=== PATIENT | male | born 1975 | race Caucasian/White ===

== ENCOUNTER 2017-04-19 14:11 | Emergency (ER) | payer OTHER ==
--- NOTE | 2017-04-19 15:47 | RAD ---
INDICATION: Calcaneal injury COMPARISON: None TECHNIQUE: AP, lateral, and oblique views were obtained. FINDINGS: There are calcination is present Achilles tendon insertion consistent with tendinopathy and perhaps a detached osteophyte from the calcaneus. No other focal bony findings are seen. Soft tissues are normal IMPRESSION: ACHILLES CALCANEAL SPUR WITH POSSIBLE DETACHMENT. ACHILLES TENDINOPATHY.
[2017-04-19 16:39] VITALS: BP 126/75
--- NOTE | 2017-04-19 17:01 | UC ---
Lower Extremity/Ankle HPI - HPI Summary HPI Summary: ONE WEEK OF RIGHT HEEL PAIN. HISTORY OF GOUT. NO KNOWN TRAUMA OR SINGLE INCIDENT WHEN IT BEGAN, BUT PAIN IS WORSE WITH AMBULATION ESPECIALLY WHEN LIFTING FOOT IN STRIDE. - History of Current Complaint Chief Complaint: UCLowerExtremity Stated Complaint: HEEL PAIN Time Seen by Provider: 04/19/17 15:12 Hx Obtained From: Patient Onset/Duration: Gradual Onset, Lasting Weeks, Worse Since - DAILY Severity Initially: Mild Severity Currently: Moderate Pain Intensity: 2 Pain Scale Used: 0-10 Numeric Aggravating Factor(s): Standing, Ambulation Alleviating Factor(s): Rest, Elevation Able to Bear Weight: Yes - Risk Factors Gout Risk Factors: Negative DVT Risk Factors: Negative Septic Arthritis Risk Factor: Negative - Allergies/Home Medications Allergies/Adverse Reactions: Allergies Allergy/AdvReac Type Severity Reaction Status Date / Time Shellfish Allergy Allergy Swelling Verified 04/01/16 15:10 Home Medications: Home Medications Losartan TAB* [Cozaar TAB*] 25 mg PO DAILY 04/19/17 [History Confirmed 04/19/17] Metoprolol Succinate [Toprol Xl] 25 mg PO 04/19/17 [History] PMH/Surg Hx/FS Hx/Imm Hx Previously Healthy: Yes - Surgical History Surgical History: Yes Surgery Procedure, Year, and Place: Appendectomy - Family History Known Family History: Positive: Diabetes - diffuse Negative: Hypertension - Social History Occupation: Employed Full-time Lives: With Family Alcohol Use: Weekly Substance Use Type: None Smoking Status (MU): Former Smoker Amount Used/How Often: 1 pack per day Length of Time of Smoking/Using Tobacco: 2008 Have You Smoked in the Last Year: No Review of Systems Constitutional: Negative Skin: Negative Eyes: Negative ENT: Negative Respiratory: Negative Cardiovascular: Negative Gastrointestinal: Negative Genitourinary: Negative Motor: Negative Neurovascular: Negative Musculoskeletal: Arthralgia, Myalgia Neurological: Negative Psychological: Negative All Other Systems Reviewed And Are Negative: Yes Physical Exam Triage Information Reviewed: Yes Appearance: Well-Appearing, No Pain Distress, Well-Nourished Vital Signs: Initial Vital Signs Temp 97.9 F 04/19/17 14:27 Pulse 85 04/19/17 14:27 Resp 18 04/19/17 14:27 BP 153/91 04/19/17 14:27 Pulse Ox 98 04/19/17 14:27 Vital Signs Reviewed: Yes Eye Exam: Normal ENT Exam: Normal Dental Exam: Normal Neck exam: Normal Neck: Positive: Supple, Nontender Respiratory Exam: Normal Respiratory: Positive: Chest non-tender, Lungs clear, Normal breath sounds, No respiratory distress, No accessory muscle use Cardiovascular Exam: Normal Cardiovascular: Positive: RRR, No Murmur, Pulses Normal, Brisk Capillary Refill Abdominal Exam: Normal Musculoskeletal: Positive: Strength Intact, ROM Intact, No Edema, Other: - TENDERNESS TO PALPATION OF RIGHT HEEL Neurological Exam: Normal Psychological Exam: Normal Skin Exam: Normal Lower Extremity Course/Dx - Differential Dx/Diagnosis Differential Diagnosis/HQI/PQRI: Fracture (Closed), Sprain, Strain Provider Diagnoses: RIGHT ACHILLES CALCANEAL SPUR WITH POSSIBLE DETACHMENT. RIGHT ACHILLES TENDINOPATHY Discharge - Discharge Plan Condition: Stable Disposition: HOME Patient Education Materials: Achilles Tendinitis (ED), Heel Spur (ED) Forms: *Work Release Referrals: Tyler Mota MD [Medical Doctor] - Freddy Rawls MD [Primary Care Provider] -
== END 2017-04-19 16:36 | disposition home or self-care (01) ==
LOC: UCEAST 14:11
DX: M77.31 Calcaneal spur, right foot (principal); M76.61 Achilles tendinitis, right leg; Z87.891 Personal history of nicotine dependence
CPT/HCPCS: 99213; G0463

== ENCOUNTER 2017-10-19 12:25 | Emergency (ER) | payer OTHER ==
[2017-10-19 12:40] VITALS: BP 145/95
--- NOTE | 2017-10-19 13:17 | UC ---
Respiratory Complaint HPI - HPI Summary HPI Summary: Pt presents with chest congestion, dry cough, and voice hoarseness. His cough began about 1 week ago and he has been taking mucinex with little relief. About 3 days ago his voice became hoarse. He denies fever, chills, sinus symptoms, SOB , chest pain, abdominal pain, n/v/d/c. - History of Current Complaint Chief Complaint: UCGeneralIllness Stated Complaint: CHEST CONGESTION Time Seen by Provider: 10/19/17 13:17 Hx Obtained From: Patient Onset/Duration: Gradual Onset Pain Intensity: 0 Character: Cough: Nonproductive - Allergies/Home Medications Allergies/Adverse Reactions: Allergies Allergy/AdvReac Type Severity Reaction Status Date / Time shellfish derived Allergy Swelling Verified 10/19/17 12:33 PMH/Surg Hx/FS Hx/Imm Hx Previously Healthy: Yes Cardiovascular History: Hypertension - Surgical History Surgical History: Yes Surgery Procedure, Year, and Place: Appendectomy - Family History Known Family History: Positive: Diabetes - diffuse Negative: Hypertension - Social History Occupation: Employed Full-time Lives: With Family Alcohol Use: Occasionally Substance Use Type: None Smoking Status (MU): Former Smoker Amount Used/How Often: 1 pack per day Length of Time of Smoking/Using Tobacco: 2008 Have You Smoked in the Last Year: No Review of Systems Constitutional: Negative Skin: Negative Eyes: Negative ENT: Other - Hoarseness Respiratory: Cough Cardiovascular: Negative Gastrointestinal: Negative Neurological: Negative Psychological: Negative All Other Systems Reviewed And Are Negative: Yes Physical Exam Triage Information Reviewed: Yes Appearance: Well-Appearing, No Pain Distress, Well-Nourished Vital Signs: Initial Vital Signs Temp 98.8 F 10/19/17 12:34 Pulse 75 10/19/17 12:34 Resp 16 10/19/17 12:34 BP 145/95 10/19/17 12:34 Pulse Ox 97 10/19/17 12:34 Vital Signs Reviewed: Yes Eyes: Positive: Conjunctiva Clear. Negative: Conjunctiva Inflamed, Discharge ENT: Positive: Hearing grossly normal, Pharynx normal, TMs normal, Hoarse voice , Uvula midline. Negative: Pharyngeal erythema, Nasal congestion, Nasal drainage, TM bulging, TM dull, TM red, Tonsillar swelling, Tonsillar exudate, Sinus tenderness Neck: Positive: Supple, Nontender, No Lymphadenopathy Respiratory: Positive: Chest non-tender, Lungs clear, No respiratory distress, No accessory muscle use, Wheezing - Mild throughout. Negative: Crackles Cardiovascular: Positive: RRR, No Murmur, Pulses Normal Neurological: Positive: Alert Psychological: Positive: Age Appropriate Behavior Skin: Negative: rashes UC Diagnostic Evaluation - Laboratory O2 Sat by Pulse Oximetry: 97 Respiratory Course/Dx - Course Course Of Treatment: CXR: IMPRESSION: NO ACTIVE CARDIOPULMONARY DISEASE. Suspect bronchitis, but given length of symptoms will cover him with an anbx in addition to tessalon and albuterol. - Differential Dx/Diagnosis Provider Diagnoses: Bronchitis Discharge - Discharge Plan Condition: Stable Disposition: HOME Prescriptions: Albuterol HFA INHALER* [Ventolin HFA Inhaler*] 1 - 2 puff INH Q6H PRN #1 mdi PRN Reason: Cough Azithromycin TAB* [Zithromax TAB (Z-LOU) 250 mg #6 tabs] 2 tab PO .TODAY, THEN 1 DAILY #1 lou Benzonatate CAP* [Tessalon 100 MG CAP*] 100 mg PO TID PRN #21 cap PRN Reason: Cough Patient Education Materials: Laryngitis (ED), Acute Bronchitis (ED) Referrals: Freddy Rawls MD [Primary Care Provider] - Additional Instructions: If you develop a fever, shortness of breath, chest pain, new or worsening symptoms - please call your PCP or go to the ED. Your blood pressure was high at todays visit. Please see your primary provider within 4 weeks for recheck and re-evaluation.
--- NOTE | 2017-10-19 13:46 | RAD ---
HISTORY: Cough COMPARISONS: None VIEWS: 4: Frontal dual-energy and lateral views of the chest. FINDINGS: CARDIOMEDIASTINAL SILHOUETTE: The cardiomediastinal silhouette is normal. DARYA: The darya are normal. PLEURA: The costophrenic angles are sharp. No pleural abnormalities are noted. LUNG PARENCHYMA: The lungs are clear. ABDOMEN: The upper abdomen is clear. There is no subphrenic gas. BONES AND SOFT TISSUES: Mild degenerative changes are noted along the spine. OTHER: None. IMPRESSION: NO ACTIVE CARDIOPULMONARY DISEASE.
== END 2017-10-19 14:09 | disposition home or self-care (01) ==
LOC: UCEAST 12:25
DX: J40 Bronchitis, not specified as acute or chronic (principal); I10 Essential (primary) hypertension; Z87.891 Personal history of nicotine dependence
CPT/HCPCS: 71046; 87502; 99212; G0463

== ENCOUNTER 2018-09-09 15:57 | Emergency (ER) | payer OTHER ==
[2018-09-09 16:30] VITALS: BP 160/101
[2018-09-09] MEDS ORDERED: Ketorolac INJ* 30 MG/ML 1 ML VIAL IM ONE (16:46)
--- NOTE | 2018-09-09 16:54 | UC ---
Abdominal Pain Male HPI - HPI Summary HPI Summary: Patient is a 42-year-old male with the acute onset of epigastric pain that started at 5 PM yesterday. The pain is been constant. The pain varies between a 5 and a 7. There is no change in the intensity of the pain with position or food. He has no nausea vomiting or diarrhea. He reports no changes in bowel habits. Today his appetite is less. He has had his appendix removed . he denies any URI symptoms or UTI symptoms. He has been taking Gas-X as well as omeprazole. He has not noted any change in his symptoms. - History of Current Complaint Chief Complaint: UCGeneralIllness Stated Complaint: ABDOMINAL PAIN Time Seen by Provider: 09/09/18 16:35 Hx Obtained From: Patient Onset/Duration: Sudden Onset, Lasting Hours Timing: Constant Severity Initially: Moderate Severity Currently: Moderate Pain Intensity: 6 Pain Scale Used: 0-10 Numeric Location: Epigastric Radiates: No Character: Aching, Dull Aggravating Factor(s): Nothing Alleviating Factor(s): Nothing Associated Signs And Symptoms: Positive: Back Pain - slight, Decreased Appetite. Negative: Diaphoresis, Fever, Cough, Chest Pain, Dizzy, Constipation , Blood in Stool, Urinary Symptoms, Nausea, Vomiting, Diarrhea, Penile Discharge - Allergies/Home Medications Allergies/Adverse Reactions: Allergies Allergy/AdvReac Type Severity Reaction Status Date / Time shellfish derived Allergy Swelling Verified 09/09/18 16:30 Home Medications: Home Medications Acetaminophen [Tylenol] 1,000 mg PO ONCE PRN 09/09/18 [History Confirmed ] Simethicone [Gas-X] 09/09/18 [History] PMH/Surg Hx/FS Hx/Imm Hx Previously Healthy: Yes Cardiovascular History: Hypertension Respiratory History: Asthma GI/ History: Gastroesophageal Reflux - Surgical History Surgical History: Yes Surgery Procedure, Year, and Place: Appendectomy - Family History Known Family History: Positive: Diabetes - diffuse Negative: Hypertension - Social History Alcohol Use: Rare Substance Use Type: None Smoking Status (MU): Former Smoker Amount Used/How Often: 1 pack per day Length of Time of Smoking/Using Tobacco: 2008 Have You Smoked in the Last Year: No Review of Systems All Other Systems Reviewed And Are Negative: Yes Constitutional: Positive: Negative Skin: Positive: Negative Eyes: Positive: Negative ENT: Positive: Negative Respiratory: Positive: Negative Cardiovascular: Positive: Negative Gastrointestinal: Positive: Abdominal Pain Genitourinary: Positive: Negative Motor: Positive: Negative Neurovascular: Positive: Negative Musculoskeletal: Positive: Negative Neurological: Positive: Negative Psychological: Positive: Negative Physical Exam Triage Information Reviewed: Yes Appearance: Well-Appearing, No Pain Distress, Well-Nourished Vital Signs: Initial Vital Signs Temp 98.7 F 09/09/18 16:25 Pulse 98 09/09/18 16:25 Resp 16 09/09/18 16:25 BP 160/101 09/09/18 16:25 Pulse Ox 100 09/09/18 16:25 Vital Signs Reviewed: Yes Eyes: Positive: Conjunctiva Clear ENT: Positive: Hearing grossly normal. Negative: Nasal congestion, Nasal drainage, Tonsillar swelling, Tonsillar exudate, Muffled voice, Hoarse voice, Uvula midline Neck: Positive: Supple, Nontender, No Lymphadenopathy Respiratory: Positive: Lungs clear, Normal breath sounds, No respiratory distress, No accessory muscle use Cardiovascular: Positive: RRR, No Murmur, Pulses Normal Abdomen Description: Positive: Soft. Negative: Nontender - tender RUQ, Bruit, CVA Tenderness (R), CVA Tenderness (L), Distended, Guarding, Hernia @, Hepatomegaly, McBurney's Point Tenderness, Peritoneal Signs, Pulsatile Mass, Splenomegaly Bowel Sounds: Positive: Present Musculoskeletal: Positive: ROM Intact, No Edema Neurological: Positive: Alert Psychological Exam: Normal Skin Exam: Normal Re-Evaluation - Re-Evaluation First Eval Re-Evaluation Time: 17:32 Change: Improved - pain very tolerable now, 3-4/10 Abd Pain Male Course/Dx - Differential Dx/Clinical Impression Provider Diagnosis: RUQ abdominal tenderness Discharge - Sign-Out/Discharge Documenting (check all that apply): Patient Departure All imaging exams completed and their final reports reviewed: No Studies - Discharge Plan Condition: Stable Disposition: HOME Patient Education Materials: Gallstones (ED), Low Fat Diet (ED) Referrals: Freddy Rawls MD [Primary Care Provider] - 2 Days Additional Instructions: blood work pending you may have gall stones TO ER FOR : worsening pain fever vomiting no fatty or fried foods - Billing Disposition and Condition Condition: STABLE Disposition: Home
[2018-09-10 13:53] LABS: ABS Basophils 0.1 10^3/ul (0-0.2); ABS Eosinophils 0.4 10^3/ul (0-0.6); ABS Lymphocytes 0.8 10^3/ul (1.0-4.8); ABS Neutrophils 9.1 10^3/ul (1.5-7.7); ABS Nucleated RBC 0 10^3/ul; Eosinophil % 3.7 %; Hematocrit 42 % (42-52); Hemoglobin 14.3 g/dl (14.0-18.0); Lymphocyte % 6.7 %; Mean Corpuscular HGB Conc 34 g/dl (31-36); Mean Corpuscular Hemoglobin 30 pg (27-31); Mean Corpuscular Volume 88 fL (80-94); Mean Platelet Volume 8.1 fL (7.4-10.4); Nucleated Red Blood Cells % 0; Platelet Count 256 10^3/ul (150-450); Red Blood Count 4.78 10^6/ul (4.00-5.40); Red Cell Distribution Width 13 % (10.5-15); White Blood Count 11.3 10^3/ul (3.5-10.8)
[2018-09-10 13:57] LABS: Albumin 4.6 g/dL (3.2-5.2); Calcium 9.6 mg/dL (8.6-10.3); Potassium 4.5 mmol/L (3.5-5.0); Total Bilirubin 0.6 mg/dL (0.2-1.0)
[2018-09-10 14:03] LABS: Albumin/Globulin Ratio 1.9 (1-3); BUN/Creatinine Ratio 20.4 (8-20); EGFR Non-African American 88.7 (>60); Globulin 2.4 g/dL (2-4)
--- NOTE | 2018-09-10 15:47 | UC ---
- Progress Note Progress Note: call patient to assure he is well and has follow up planned for Tuesday If symptoms are persisting follow in ED as glucose lipase wnc are elevated Re-Evaluation - Re-Evaluation First Eval Re-Evaluation Time: 17:32 Change: Improved - pain very tolerable now, 3-12/13 Course/Dx - Diagnoses Provider Diagnoses: RUQ abdominal tenderness Discharge - Sign-Out/Discharge Documenting (check all that apply): Post-Discharge Follow Up All imaging exams completed and their final reports reviewed: No Studies - Discharge Plan Condition: Stable Disposition: HOME Patient Education Materials: Gallstones (ED), Low Fat Diet (ED) Referrals: Freddy Rawls MD [Primary Care Provider] - 2 Days Additional Instructions: blood work pending you may have gall stones TO ER FOR : worsening pain fever vomiting no fatty or fried foods - Billing Disposition and Condition Condition: STABLE Disposition: Home
== END 2018-09-09 17:57 | disposition home or self-care (01) ==
LOC: UCEAST 15:57
DX: R10.811 Right upper quadrant abdominal tenderness (principal); I10 Essential (primary) hypertension; J45.909 Unspecified asthma, uncomplicated; Z87.891 Personal history of nicotine dependence; Z91.013 Allergy to seafood
CPT/HCPCS: 36415; 80053; 81003; 83690; 85025; 96372; 99211; G0463; J1885

== ENCOUNTER 2018-09-09 22:54 | Emergency (ER) | payer OTHER ==
[2018-09-09] MEDS ORDERED: Morphine VIAL* 4 MG/ML VIAL (1 ml vial) IV ONE (23:16)
[2018-09-09 23:40] LABS: Urine Appearance Clear; Urine Bacteria Absent (Absent); Urine Bilirubin Negative (Negative); Urine Blood 1+ (Negative); Urine Color Yellow; Urine Glucose 3+(>=500 mg/dL) (Negative); Urine Ketones Negative (Negative); Urine Nitrite Negative (Negative); Urine Protein Negative (Negative); Urine Red Blood Cell Trace(0-2/hpf) (Absent); Urine Specific Gravity 1.026 (1.010-1.030); Urine Urobilinogen Negative (Negative); Urine White Blood Cell Absent (Absent)
[2018-09-09 23:42] LABS: ABS Basophils 0.1 10^3/ul (0-0.2); ABS Eosinophils 0.4 10^3/ul (0-0.6); ABS Lymphocytes 0.8 10^3/ul (1.0-4.8); ABS Monocytes 1.1 10^3/ul (0-0.8); ABS Neutrophils 7.7 10^3/ul (1.5-7.7); ABS Nucleated RBC 0 10^3/ul; Eosinophil % 4.1 %; Hematocrit 39 % (42-52); Hemoglobin 13.6 g/dl (14.0-18.0); Lymphocyte % 7.8 %; Mean Corpuscular HGB Conc 35 g/dl (31-36); Mean Corpuscular Hemoglobin 31 pg (27-31); Mean Corpuscular Volume 87 fL (80-94); Mean Platelet Volume 7.5 fL (7.4-10.4); Nucleated Red Blood Cells % 0; Platelet Count 244 10^3/ul (150-450); Red Blood Count 4.45 10^6/ul (4.00-5.40); Red Cell Distribution Width 13 % (10.5-15); White Blood Count 10.1 10^3/ul (3.5-10.8)
[2018-09-09] MEDS ORDERED: NS 0.9% 1000 ML* 1,000 ML IV ONE (23:45)
--- NOTE | 2018-09-09 23:57 | ED ---
GI/ HPI - HPI Summary HPI Summary: 42-year-old male presents with epigastric pain for the past 2 days. He states pain is constant. He states it stays in the epigastric. Does not radiate anywhere. no flank pain. Denies any chest pain or shortness breath. no cough or sore throat. He states it does not change with position or food. No nausea vomiting or diarrhea. Appetite has been normal. He had a normal dinner today. Denies any urinary symptoms. He tried some Gas-X without relief. Also tried omeprazole. He states he started to develop with fever tonight. He has had his appendix removed. - History of Current Complaint Chief Complaint: EDAbdPain Time Seen by Provider: 09/09/18 23:07 Stated Complaint: ABD PAIN Pain Intensity: 7 - Allergy/Home Medications Allergies/Adverse Reactions: Allergies Allergy/AdvReac Type Severity Reaction Status Date / Time shellfish derived Allergy Swelling Verified 09/09/18 23:01 PMH/Surg Hx/FS Hx/Imm Hx Endocrine/Hematology History: Denies: Hx Diabetes, Hx Thyroid Disease Cardiovascular History: Reports: Hx Hypertension Respiratory History: Reports: Hx Asthma - when child Denies: Hx Chronic Obstructive Pulmonary Disease (COPD) GI History: Denies: Hx Ulcer - Surgical History Surgery Procedure, Year, and Place: Appendectomy Infectious Disease History: No Infectious Disease History: Denies: Hx Clostridium Difficile, Hx Hepatitis, Hx Human Immunodeficiency Virus (HIV), Hx of Known/Suspected MRSA, Hx Shingles, Hx Tuberculosis, Hx Known/ Suspected VRE, Hx Known/Suspected VRSA, History Other Infectious Disease, Traveled Outside the [place] in Last 30 Days - Family History Known Family History: Positive: Diabetes - diffuse Negative: Hypertension - Social History Alcohol Use: Rare Substance Use Type: Reports: None Smoking Status (MU): Former Smoker Amount Used/How Often: 1 pack per day Length of Time of Smoking/Using Tobacco: 2008 Have You Smoked in the Last Year: No Review of Systems Positive: Fever Negative: Chest Pain Negative: Shortness Of Breath Positive: Abdominal Pain. Negative: Vomiting, Diarrhea, Nausea All Other Systems Reviewed And Are Negative: Yes Physical Exam Triage Information Reviewed: Yes Vital Signs On Initial Exam: Initial Vitals Temp Pulse Resp BP Pulse Ox 100.8 F 112 18 176/81 98 09/09/18 22:59 09/09/18 22:59 09/09/18 22:59 09/09/18 22:59 09/09/18 22:59 Vital Signs Reviewed: Yes Appearance: Positive: Well-Appearing Skin: Positive: Warm, Dry, Other - erythema to right leg that is warm to touch Head/Face: Positive: Normal Head/Face Inspection Eyes: Positive: Normal, Conjunctiva Clear ENT: Positive: Pharynx normal Respiratory/Lung Sounds: Positive: Clear to Auscultation, Breath Sounds Present Cardiovascular: Positive: Normal, RRR Abdomen Description: Positive: Soft, Other: - tenderness epigastric Bowel Sounds: Positive: Present Musculoskeletal: Positive: Normal Neurological: Positive: Normal Psychiatric: Positive: Normal Diagnostics - Vital Signs Vital Signs Temp Pulse Resp BP Pulse Ox 09/09/18 23:34 15 09/09/18 22:59 100.8 F 112 18 176/81 98 - Laboratory Lab Results: Lab Results 09/09/18 09/09/18 09/09/18 Range/Units 23:25 23:27 23:39 WBC 10.1 (3.5-10.8) 10^3/ul RBC 4.45 (4.00-5.40) 10^6/ul Hgb 13.6 L (14.0-18.0) g/dl Hct 39 L (42-52) % MCV 87 (80-94) fL MCH 31 (27-31) pg MCHC 35 (31-36) g/dl RDW 13 (10.5-15) % Plt Count 244 (150-450) 10^3/ul MPV 7.5 (7.4-10.4) fL Neut % (Auto) 76.4 % Lymph % (Auto) 7.8 % [place] % (Auto) 10.9 % Eos % (Auto) 4.1 % Baso % (Auto) 0.8 % Absolute Neuts (auto) 7.7 (1.5-7.7) 10^3/ul Absolute Lymphs (auto) 0.8 L (1.0-4.8) 10^3/ul Absolute Monos (auto) 1.1 H (0-0.8) 10^3/ul Absolute Eos (auto) 0.4 (0-0.6) 10^3/ul Absolute Basos (auto) 0.1 (0-0.2) 10^3/ul Absolute Nucleated RBC 0 10^3/ul Nucleated RBC % 0 Urine Color Yellow Urine Appearance Clear Urine pH 5.0 (5-9) Ur Specific [place] 1.026 (1.010-1.030) Urine Protein Negative (Negative) Urine Ketones Negative (Negative) Urine Blood 1+ A (Negative) Urine Nitrate Negative (Negative) Urine Bilirubin Negative (Negative) Urine Urobilinogen Negative (Negative) Ur Leukocyte Esterase Negative (Negative) Urine WBC (Auto) Absent (Absent) Urine RBC (Auto) Trace(0-2/hpf) (Absent) Urine Bacteria Absent (Absent) Urine Glucose 3+(>=500 mg/dl) A (Negative) Influenza A (Rapid) Negative (Negative) Influenza B (Rapid) Negative (Negative) Result Diagrams: 09/09/18 23:27 09/09/18 23:27 Lab Statement: Any lab studies that have been ordered have been reviewed, and results considered in the medical decision making process. - CT abd CT Interpretation Completed By: Radiologist Summary of CT Findings: IMPRESSION: 1. Blunting of the proximal pancreas with the surrounding fat stranding which. may be due to focal pancreatitis. 2. Hepatomegaly and hepatic steatosis. 3. A small hiatal hernia. 4. A 0.7 cm renal cyst. Cysts - Ultrasound No standard instances Ultrasound Interpretation Completed By: Radiologist Summary of Ultrasound Findings: IMPRESSION: 1. Poorly visualized pancreas. 2. Otherwise, no acute findings. 3. Hepatomegaly and hepatic steatosis. Re-Evaluation - Re-Evaluation First Eval Re-Evaluation Time: 23:57 Change: Improved Comment: feeling better Second Eval Re-Evaluation Time: 01:03 Comment: discussed glucose results and gave insulin, patient states has a strong fam hx of DM GIGU Course/Dx - Course Course Of Treatment: 42-year-old male presents with epigastric pain today. He admits to fever. No nausea vomiting diarrhea. on exam tenderness epigastric. Lungs clear to auscultation. flu negative. White blood cell count normal. u/s gallbladder normal. as has elevated temp and tachycardiac got CT. lipase elevated at 155 but is not 3x upper limit. glucose elevated at 400 and patient states has no history of DM. gave dose of insulin here. crp elevated. amylase normal. CT shows focal pancreatitis. patient later states that has had rash on right leg for past couple days. has vascular rash on right leg with some erythema and warmth to touch on right leg. will place on keflex for potential cellulitis. offered admission for pancreatitis and patient declined. will try to manage at home. has normal diet at this point. warned if anything changes to return. patient understand and agrees with plan. - Diagnoses Differential Diagnoses - Male: Cholecystitis, Cholelithiasis, Urinary Tract Infection Provider Diagnoses: Pancreatitis, Cellulitis Discharge - Sign-Out/Discharge Documenting (check all that apply): Patient Departure - Discharge Plan Condition: Good Disposition: HOME Prescriptions: Cephalexin CAP* [Keflex CAP*] 500 mg PO BID #13 cap Patient Education Materials: Pancreatitis (ED), Cellulitis (ED) Referrals: Freddy Rawls MD [Primary Care Provider] - Additional Instructions: A test for diabetes was ordered on you today but you will need follow up with primary for results Take Keflex twice a day for 7 days Take Tylenol or ibuprofen as needed for pain every 6 hours Follow up with primary within 5 days Return to ED if develop any new or worsening symptoms - Billing Disposition and Condition Condition: GOOD Disposition: Home
[2018-09-10 00:02] LABS: Albumin 4.3 g/dL (3.2-5.2); Albumin/Globulin Ratio 1.7 (1-3); BUN/Creatinine Ratio 20.2 (8-20); C Reactive Protein 76.96 mg/L (<8.01); Calcium 9.3 mg/dL (8.6-10.3); EGFR Non-African American 77.9 (>60); Globulin 2.5 g/dL (2-4); Total Bilirubin 0.5 mg/dL (0.2-1.0); Total Protein 6.8 g/dL (6.4-8.9)
[2018-09-10] MEDS ORDERED: Iohexol 300* (CONTRAST) 10 ML SDV IV ONE (00:41)
[2018-09-10] MEDS ORDERED: Insulin REGULAR(*) 1 UNITS UNIT SUBCUT ONE (00:48)
[2018-09-10] MEDS ORDERED: NS 0.9% 1000 ML* 1,000 ML IV ONE (00:53)
[2018-09-10] MEDS ORDERED: Ketorolac INJ* 30 MG/ML 1 ML VIAL IV PUSH ONE (01:04)
[2018-09-10] MEDS ORDERED: Cephalexin CAP* 500 MG PO ONE (02:53)
[2018-09-10 03:06] VITALS: BP 151/90
== END 2018-09-10 03:04 | disposition home or self-care (01) ==
LOC: ED 22:54
DX: K85.90 Acute pancreatitis without necrosis or infection, unspecified (principal); L03.90 Cellulitis, unspecified; R10.9 Unspecified abdominal pain; Z87.891 Personal history of nicotine dependence
CPT/HCPCS: 36415; 74177; 76705; 80053; 81003; 81015; 82150; 83036; 83605; 83690; 85025; 86140; 96361; 96374; 99283; A9270-GY; J1885; J2270; Q9967